=== PATIENT | male | born 1975 | race American Indian/Alaskan Native ===

== ENCOUNTER 2019-08-25 19:12 | Emergency (ER) | payer MEDICAID, OTHER, SELFPAY ==
[2019-08-25 19:31] VITALS: BP 112/65; PULSE 60; RESP 16; TEMP 36.7; O2SAT 98
--- NOTE | 2019-08-25 20:24 | ED_ITS ---
HPI - Back Pain/Injury General Chief Complaint: Back Pain/Injury Stated Complaint: Back and Neck problems, hurts to walk Time Seen by Provider: 08/25/19 20:18 Source: patient Mode of arrival: Ambulatory Limitations: no limitations History of Present Illness HPI Narrative: 44-year-old male here for evaluation of right-sided back pain. States that it started couple days ago. No specific injury. States that he goe s from his neck to his lower back. Is on the right side. Has not midline. He has never had anything like this in the past. He has tried Tylenol for it but no other medications. No radiation pain into his arms or legs Related Data Previous Rx's Medication Instructions Recorded meloxicam [Mobic] 7.5 mg PO DAILY #14 tab 08/25/19 Allergies Allergy/AdvReac Type Severity Reaction Status Date / Time codeine [CODEINE] Allergy Unknown Unverified 01/31/18 13:05 ibuprofen [IBUPROFEN] Allergy Unknown Unverified 01/31/18 13:05 naproxen [NAPROXEN] Allergy Unknown Unverified 01/31/18 13:05 Penicillins [PENICILLINS] Allergy Unknown Unverified 01/31/18 13:05 tramadol [TRAMADOL] Allergy Unknown Unverified 01/31/18 13:05 Review of Systems Constitutional Constitutional: Denies fever(s) and Denies headache(s) ENT Ears, Nose, Mouth, and Throat: Denies headache(s) and Denies neck pain Cardiovascular Cardiovascular: Denies chest pain and Denies dyspnea Respiratory Respiratory: Denies dyspnea Gastrointestinal Gastrointestinal: Denies abdominal pain Musculoskeletal Musculoskeletal: Reports back pain, Denies neck pain, Denies radiating pain into limb, Denies stiffness and Denies tingling Integumentary/Breasts Skin/Breast: Denies lesions and Denies rash Neurologic Neurologic: Denies headache(s), Denies tingling and Denies paresthesias Hematologic/Lymphatic Hematologic/Lymphatic: Denies easy bleeding and Denies easy bruising Patient History Medical History Chest wall muscle strain (Inactive) Tooth fracture (Inactive) Social History Smoking Status: Current every day smoker tobacco type: cigarettes alcohol intake frequency: holidays/special occasions only Exam Initial Vital Signs Initial Vital Signs: Vital Signs Temperature 98.1 F 08/25/19 19:31 Pulse Rate 60 08/25/19 19:31 Respiratory Rate 16 08/25/19 19:31 Blood Pressure 112/65 08/25/19 19:31 Pulse Oximetry 98 08/25/19 19:31 Const General: cooperative, well developed and well groomed Orientation: alert and awake HENMT Head: normal to inspection and normocephalic Resp Effort & Inspection: normal respiratory effort Cardio Rate: regular rate Back/Spine/Pelvis Cervical Spine: No cervical spasm and No cervical spinal tenderness Thoracic/Lumbar Spine: paraspinal tenderness (Right-sided), No thoracic spinal tenderness and No lumbar spinal tenderness Skin Lesions: no lesions Rashes: no rashes Neuro General: alert and awake Gait: normal gait Extrem General: normal to inspection and capillary refill normal Psych Appearance: grossly normal and well kempt Course Orders Ordered: Discontinued Medications Ketorolac Tromethamine (Toradol) 15 mg IM NOW ONE Stop: 08/25/19 20:26 Last Admin: 08/25/19 20:31 Dose: 15 mg Documented by: MARY Vital Signs Vital signs: Vital Signs - 8 hr 08/25/19 19:31 08/25/19 21:08 Temperature 98.1 F Pulse Rate 60 66 Respiratory Rate 16 18 Blood Pressure 112/65 119/77 Pulse Oximetry 98 99 MDM - Back Pain/Injury MDM Narrative Medical decision making narrative: Patient with right-sided paraspinal muscle tenderness. There is no muscle spasms felt. Patient states he is allergic to ibuprofen and Naprosyn. He states he has never had Toradol before. He was given Toradol here in the emergency department and seems to have tolerated that well. Will send home with prescription for Mobic. We discussed other modalities such as heat and ice and massage. I do not feel the need for emergent radiologic studies put patient given return precautions and follow-up instructions. He expressed understanding and agreement plan. Discharge Plan Departure Patient Disposition: Home Clinical Impression: Strain of back Qualifiers: Encounter type: initial encounter Qualified Code(s): S39.012A - Strain of muscle, fascia and tendon of lower back, initial encounter Discharge Date/Time: 08/25/19 21:11 Instructions: DI for Back Strain or Sprain Activity Restrictions/Additional Instructions: Recommend you take the medications as directed. I also recommend that you use heat and ice and light stretching. Contact your primary provider for a follow- up. Return to the emergency department for any worsening symptoms Prescriptions: New meloxicam [Mobic] 7.5 mg tablet 7.5 mg PO DAILY Qty: 14 RF: 0 Referrals: Susan Mratin PA-C [Primary Care Provider] -
[2019-08-25] MEDS: KETOROLAC 60 MG/2 ML VIAL 15 MG IM (20:31)
--- NOTE | 2019-08-25 20:45 | PC.NURSE ---
Four days ago patient was normal, three days ago woke with back pain and neck pain. No tenderness upon palpation of the spine. Patient jumps and says wow when palpating muscles down back significantly more on right shoulder blade region. Patient denies injury or trauma
[2019-08-25 21:08] VITALS: BP 119/77; PULSE 66; RESP 18; O2SAT 99
== END 2019-08-25 21:11 | disposition home or self-care (01) ==
PROVIDERS: Emergency Provider Emergency Medicine; PCP Physician Assistant
DX: S39.012A Strain of muscle, fascia and tendon of lower back, initial encounter (principal)
CPT/HCPCS: 99282; 99283; J1885

== ENCOUNTER 2019-10-20 20:51 | Emergency (ER) | payer OTHER, MEDICAID, SELFPAY ==
[2019-10-20 20:59] VITALS: BP 131/74; PULSE 75; RESP 15; TEMP 36.9; O2SAT 99; BMI 30.3
--- NOTE | 2019-10-20 21:27 | ED_ITS ---
HPI - Headache General Chief Complaint: Headache Stated Complaint: lower back of skull hurts Time Seen by Provider: 10/20/19 21:27 Mode of arrival: Ambulatory Limitations: no limitations History of Present Illness HPI Narrative: 44-year-old gentleman presents with headache along the left posterior portion of his head. No associated photophobia. Minor nausea no fevers cough cold or chills. He states that he has had headaches before he has tried only Tylenol at this point. He has severe allergies to all nonsteroidals. There are no acute neurologic changes or other red flags for life-threatening headache at this time. Related Data Previous Rx's Medication Instructions Recorded meloxicam [Mobic] 7.5 mg PO DAILY #14 tab 08/25/19 Allergies Allergy/AdvReac Type Severity Reaction Status Date / Time codeine [CODEINE] Allergy Unknown Unverified 01/31/18 13:05 ibuprofen [IBUPROFEN] Allergy Unknown Unverified 01/31/18 13:05 naproxen [NAPROXEN] Allergy Unknown Unverified 01/31/18 13:05 Penicillins [PENICILLINS] Allergy Unknown Unverified 01/31/18 13:05 tramadol [TRAMADOL] Allergy Unknown Unverified 01/31/18 13:05 Review of Systems Review of Systems Narrative: All systems reviewed and are unremarkable except as noted in HPI and below Patient History Medical History Chest wall muscle strain (Inactive) Tooth fracture (Inactive) Social History Smoking Status: Current every day smoker Smoking Status: Current every day smoker tobacco type: cigarettes alcohol intake frequency: holidays/special occasions only Exam Narrative Exam Narrative: General: Healthy appearing, in no acute distress. Able to give a complete and coherent history. Well-nourished well-developed HEENT: Moist mucous membranes, normal sclera with reactive pupils, there are no scalp lesions around the area of pain and no posterior cervical adenopathy Neck: No JVD, supple Respiratory: Lungs are clear to auscultation, no wheezing no rales no rhonchi. Full and symmetrical air movement Cardiac: Regular rate and rhythm no murmurs no bruits Abdomen: Soft nontender good bowel tones, no flank pain Skin: Warm and dry, no rashes Neurologic: Grossly neurologically intact with no obvious asymmetries or abnormalities Extremities: No trauma, well perfused Psych: Cooperative, appropriate insight and affect Initial Vital Signs Initial Vital Signs: Vital Signs Temperature 98.5 F 10/20/19 20:59 Pulse Rate 75 10/20/19 20:59 Respiratory Rate 15 10/20/19 20:59 Blood Pressure 131/74 10/20/19 20:59 Pulse Oximetry 99 10/20/19 20:59 Course Orders Ordered: Discontinued Medications Acetaminophen (Tylenol) 975 mg PO NOW ONE Stop: 10/20/19 21:33 Last Admin: 10/20/19 21:56 Dose: 975 mg Documented by: GREGORIA Dexamethasone (Decadron) 10 mg IV NOW ONE Stop: 10/20/19 21:33 Last Admin: 10/20/19 21:56 Dose: 10 mg Documented by: GREGORIA Diphenhydramine HCl (Benadryl) 25 mg IV NOW ONE Stop: 10/20/19 21:33 Last Admin: 10/20/19 21:56 Dose: 25 mg Documented by: GREGORIA Sodium Chloride (Normal Saline 0.9%) 1,000 mls @ 1,000 mls/hr IV BOLUS ONE Stop: 10/20/19 22:31 Last Infusion: 10/20/19 22:50 Dose: 0 mls/hr Documented by: Admin: 10/20/19 21:56 Dose: 1,000 mls/hr Documented by: GREGORIA Metoclopramide HCl (Reglan) 10 mg IV NOW ONE Stop: 10/20/19 21:33 Last Admin: 10/20/19 21:56 Dose: 10 mg Documented by: GREGORIA Vital Signs Vital signs: Vital Signs - 8 hr 10/20/19 20:59 Temperature 98.5 F Pulse Rate 75 Respiratory Rate 15 Blood Pressure 131/74 Pulse Oximetry 99 MDM - Headache Differential Diagnosis Differential diagnosis: Likely migraine, tension headache, subarachnoid hemorrhage, headache, meningitis and sinusitis Medical Records Attestation: I reviewed the patient's medical records. MDM Narrative Medical decision making narrative: Posterior occipital headache without concerni ng neurologic findings. Mild improvement after headache cocktail and oral Tylenol. He is safe for home discharge at this time Discharge Plan Departure Patient Disposition: Home Clinical Impression: Headache Instructions: DI for Headache Activity Restrictions/Additional Instructions: Thank you for coming in today I'm sorry the herrera developed this headache over the last 24 hours. With your exam I do not see any evidence of infection either on your scalp causing swollen lymph nodes nor inside your head. Without a fever or other symptoms I am not suspecting influenza at this time. You were given fluids, steroids and nausea medicine and unfortunately this was not enough to completely relieve your headache pain. With your nonsteroidal allergies additional options are limited. At this point there are no life-threatening red flags. I believe it is safe for you to go home. I am hopeful that a good night sleep (and the Benadryl in the headache cocktail you received should help with a good night sleep) will be beneficial in getting rid of the headache. If you develop any worsening signs or symptoms including fever, chills, light sensitivity or other new findings please feel free to return and I'm happy to re-evaluate your head pain. Prescriptions: No Action meloxicam [Mobic] 7.5 mg tablet 7.5 mg PO DAILY Qty: 14 RF: 0 Referrals: Susan Martin PA-C [Primary Care Provider] -
[2019-10-20] MEDS: SODIUM CHLORIDE 0.9% 1,000 ML 1000 ML IV (21:56)
[2019-10-20] MEDS: METOCLOPRAMIDE 10 MG/2 ML INJ IV (21:56)
[2019-10-20] MEDS: DEXAMETHASONE 10 MG/ML VIAL IV (21:56)
[2019-10-20] MEDS: ACETAMINOPHEN 325 MG TABLET 975 MG PO (21:56)
[2019-10-20] MEDS: diphenhydrAMINE 50 MG/ML VIAL 25 MG IV (21:56)
[2019-10-20 23:55] VITALS: BP 118/70; PULSE 69; RESP 14; O2SAT 96
== END 2019-10-20 23:58 | disposition home or self-care (01) ==
PROVIDERS: Emergency Provider Emergency Medicine; PCP Physician Assistant
DX: R51 Headache (principal); R11.0 Nausea
CPT/HCPCS: 96361; 96374; 96375; 99283; J1100; J1200; J2765

== ENCOUNTER → 2022-05-13 16:56 | Outpatient (CLI) | payer OTHER, MEDICAID, SELFPAY ==
--- NOTE | 2022-05-13 | DI.RAD.S_ITS ---
PROCEDURE: XR KNEE RT 1TO2V INDICATIONS: Acute pain of right knee TECHNIQUE: 2 views of the knee were acquired. COMPARISON: [facility], , KNEE 3V LEFT, 08/19/2012, 0:08. FINDINGS: Bones: No fractures or dislocations. No suspicious bony lesions. Soft tissues: No joint effusion. No suspicious soft tissue calcifications. IMPRESSION: Normal two-view right knee. Dictated by: Sheri Waddell M.D. on 05/13/2022 at 19:07 Approved by: Sheri Waddell M.D. on 05/13/2022 at 19:08
== END ==
PROVIDERS: PCP Physician Assistant; Referring Provider Physician Assistant; Visit Provider Physician Assistant
DX: M25.561 Pain in right knee (principal)
CPT/HCPCS: 73560